=== PATIENT | female | born 1955 ===

== ENCOUNTER 2018-06-23 07:36 | Outpatient (CLI) | payer OTHER | END 2018-06-23 09:08 | disposition home or self-care (01) | LOC: LAB 07:36 | DX: I10 Essential (primary) hypertension (principal); E11.9 Type 2 diabetes mellitus without complications; E03.8 Other specified hypothyroidism; E78.2 Mixed hyperlipidemia ==

== ENCOUNTER 2018-11-20 07:56 | Emergency (ER) | payer OTHER ==
[~2018-11-20] VITALS: Ht 162.6 cm; Wt 68.0 kg
[2018-11-20] MEDS ORDERED: SYNTHROID175 MCG (08:19)
[2018-11-20] MEDS ORDERED: NAPROXEN500 MG PO ×2 (09:13→09:14)
[2018-11-20] MEDS ORDERED: SKELAXIN800 MG PO ×2 (09:13→09:14)
[2018-11-20] MEDS ORDERED: TUSSIONEX PENN115 ML PO ×2 (09:14)
== END 2018-11-20 10:22 | disposition home or self-care (01) ==
LOC: ER 07:56
DX: M62.838 Other muscle spasm (principal)